=== PATIENT | female | born 1930 | race Caucasian/White ===

== ENCOUNTER 2018-03-16 05:58 | Emergency (ER) | payer OTHER ==
[~2018-03-16] VITALS: Ht 152.4 cm; Wt 63.5 kg
--- NOTE | ~2018-03-16 | EKG ---
[facility] [address] [place] [address] ELECTROCARDIOGRAM REPORT Name: CHRIS MENDOZA Room #: [facility] Carl#: [id number] Admission: 03/16/18 Attend Phys: Discharge: 03/16/18 Date of : [birth year] Report #: [id number] THIS REPORT FOR: //name// [facility] ED Test Date: 2018-03-16 Test Time: 06:18:21 Pat Name: CHRIS MENDOZA Department: Room: Gender: F [employer]: Curtis CH : 1930 Requested By: Jose R Soto Order Number: [id number] MD: Jc Price Measurements Intervals [place] Rate: 171 P: CT: QRS: -63 QRSD: 151 T: -76 QT: QTc: 0 Interpretive Statements Sinus rhythm Leftward axis Left bundle-branch block Artifact in lead(s) I,II,III,aVR,V1,V2,V3,V4,V5,V6 No previous ECG available for comparison Electronically Signed On 03-16-2018 8:53:32 CDT by Jc Price [email or web address] <ELECTRONICALLY SIGNED> By: Jc Price MD, [facility] 03/16/18 [id number] Jc Price MD, [facility] /EPI
[2018-03-16 06:21] LABS: ABSOLUTE NEUTROPHILS 4.4 thou/uL (1.4-8.2); BASOPHILS 1.1 % (0.0-2.0); EOSINOPHILS 3.1 % (0.0-3.0); HEMOGLOBIN 11.3 gm/dL (12.0-15.0); MCH 32.4 pg (26.0-34.0); MCHC 33.2 g/dL (28.0-37.0); MCV 97.5 fL (80.0-100.0); MONOCYTES 8.6 % (1.0-8.0); PLATELET COUNT 459 thou/uL (150-400); POLYS 73.2 % (36.0-66.0); RBC 3.49 mil/uL (4.20-5.00); RDW 14.8 % (10.5-14.5)
[2018-03-16 06:29] LABS: CALCIUM 9.2 mg/dL (8.5-10.1); CREATININE 0.6 mg/dL (0.6-1.0); POTASSIUM 3.2 mmol/L (3.5-5.1)
[2018-03-16 06:35] LABS: ALBUMIN 3.5 g/dL (3.4-5.0); TOTAL BILIRUBIN 0.7 mg/dL (<0.1-1.0); TOTAL PROTEIN 7.2 g/dL (6.4-8.2)
[2018-03-16 06:50] LABS: BE(vivo) 0.2 mmol/L (-2 to +3); HCO3 27.6 mmol/L (22.0-26.0); PCO2 VENOUS 57.3 mmHg (41.0-51.0); PO2 VENOUS 55.3 mmHg (35.0-45.0)
[2018-03-16 07:05] LABS: URINE BILIRUBIN NEGATIVE (Negative); URINE BLOOD NEGATIVE (Negative); URINE CLARITY CLEAR; URINE COLOR YELLOW; URINE GLUCOSE-RANDOM* TRACE (Negative); URINE KETONES NEGATIVE (Negative); URINE LEUKOCYTES-REFLEX NEGATIVE (Negative); URINE NITRITE-REFLEX NEGATIVE (Negative); URINE PROTEIN (DIPSTICK) NEGATIVE (Negative); URINE SPECIFIC GRAVITY <= 1.005 (1.005-1.035); URINE UROBILINOGEN 0.2 E.U./dl (0.2-1.0)
[2018-03-16 08:40] VITALS: BP 159/62
== END 2018-03-16 08:41 ==
LOC: ER 05:58
PROVIDERS: Emergency Medicine
DX: E16.2 Hypoglycemia, unspecified (principal)